=== PATIENT | male | born 1980 | race Caucasian/White ===

== ENCOUNTER 2019-05-26 11:03 | Outpatient (CLI) | payer OTHER, SELFPAY ==
--- NOTE | ~2019-05-26 | XR_ITS ---
EXAMINATION: XR foot RT min 3V DATE: 05/26/2019 11:25 INDICATION: Right-sided pain. TECHNIQUE: 4 views of right foot were obtained. COMPARISON: None. FINDINGS: Bone alignment is normal. No fracture. There is mild osteoarthritis of first metatarsophala ngeal joint. There is soft tissue swelling at fifth metatarsophalangeal joint. IMPRESSION: 1. Mild osteoarthritis of first metatarsophalangeal joint. Reviewed, dictated and finalized at location A. 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
== END 2019-05-26 11:04 | disposition home or self-care (01) ==
PROVIDERS: PCP Family Medicine; Visit Provider Family Medicine
DX: M79.671 Pain in right foot (principal)
CPT/HCPCS: 73630

== ENCOUNTER 2023-05-19 09:39 | Emergency (ER) | payer OTHER, SELFPAY ==
--- NOTE | ~2023-05-19 | XR_ITS ---
EXAMINATION: XR finger 4th LT min 2V DATE: 05/19/2023 10:02 INDICATION: Left hand fourth digit injury. TECHNIQUE: 3 views of left hand fourth digit were obtained. COMPARISON: None. FINDINGS: There is a comminuted fracture of tuft of fourth distal phalanx. Joint spaces are normal. T here is soft tissue swelling of the fourth digit. No radiopaque foreign body. IMPRESSION: 1. Comminuted fracture of tuft of fourth distal phalanx. Reviewed, dictated and finalized at location A. ONCOLOGY
[2023-05-19 09:39] VITALS: BP 144/86; PULSE 63; RESP 17; TEMP 36.9; O2SAT 99
--- NOTE | 2023-05-19 09:46 | ED.WOUNDLAC ---
HPI - Wound/Laceration General Chief Complaint: Wound/Laceration Stated Complaint: left ring finger crush injury Time Seen by Provider: 05/19/23 09:46 History of Present Illness HPI narrative: Patient is a 42 year old male with no PMH here with crush injury to left ring finger. Around 8 am today he was working with some machinery and his left ring finger got stuck between a piece of machinery and metal. He is right handed. Bleeding has controlled. No motor or sensory deficits in the hand with normal movement of the finger. No additional injuries. Unsure of last tetanus. Related Data Allergies Allergy/AdvReac Type Severity Reaction Status Date / Time Penicillins Allergy Anaphylaxis Verified 05/19/23 10:07 Review of Systems Review of Systems: All systems reviewed & are unremarkable except as noted in HPI and below Exam Narrative: GENERAL: Well-appearing, well-nourished, and in no acute distress. HEAD: Normocephalic, atraumatic. EYES: PERRLA and EOMI. ENT: Nares clear. Mucous membranes moist. NECK: Supple. CHEST: Clear to auscultation. No respiratory distress. HEART: Regular rate and rhythm. Normal peripheral pulses. ABDOMEN: Soft, nontender, nondistended. EXTREMITIES: Normal range of motion. No edema. 2 cm laceration to the palmar aspect extending to the tip of the left 4th digit, bleeding controlled. SKIN: Warm, dry, no rash. NEURO: No focal deficits. Alert and oriented x3. PSYCH: Normal mood and affect. Course Course Emergency Course: Chart review performed. Patient here for ring finger injury. Triage vitals normal. No prior visits in our system. Patient seen and evaluated, non toxic appearing. Isolated left ring finger laceration and crush injury. Will perform XR to evaluate for fracture, tetanus to be updated, will require laceration repair. Does not appear to extend into the nail bed on initial evaluation. XR reviewed by myself, small tuft fracture appreciated. Digital block performed with 2 ml of lidocaine without epi, wound explored. Does not appear to have obvious nail bed injury. Lateral aspect of the laceration does appear to run along the lateral boarder of nail. Offered nail removal with thorough nail bed exploration, patient refused. Advised he may have chance of a distorted nail growth pattern in that area, patient understands and continues to refuse nail removal. Triple antibiotic ointment and sterile dressing placed. The results of pertinent diagnostic studies and exam findings were discussed. The patient?s provisional diagnosis and plan of care were discussed with the patient and present family. The patient and/or present family expressed understanding of the diagnosis and plan. The nurse was instructed to provide written instructions and appropriate follow-up information. The patient understands their need and responsibility to obtain additional follow-up as instructed. The risks of medications administered and prescribed were discussed with the patient and family present. Vital Signs Vital signs: Vital Signs Temperature 98.4 F 05/19/23 09:39 Pulse Rate 63 05/19/23 09:39 Respiratory Rate 17 05/19/23 09:39 Blood Pressure 144/86 H 05/19/23 09:39 Pulse Oximetry 99 05/19/23 09:39 Oxygen Delivery Room Air 05/19/23 09:39 Temperature 98.4 F 05/19/23 09:39 Pulse Rate 63 05/19/23 09:39 Respiratory Rate 17 05/19/23 09:39 Blood Pressure 144/86 H 05/19/23 09:39 Pulse Oximetry 99 05/19/23 09:39 Oxygen Delivery Room Air 05/19/23 09:39 Procedures Laceration Laceration 1: Date: 05/19/23 Time: 10:47 Site: hand Side (If applicable): left Size (cm): 2 Description: linear Depth: simple, single layer Local Anesthetic: lidocaine 1% Amount of anesthesia used (mL): 2 Pre-repair: wound explored and irrigated ====== Skin Level ====== Skin layer closed with: prolene Size (cm): 5-0
[2023-05-19] MEDS: ACETAMINOPHEN 500 MG TABLET 1000 MG PO (10:07)
[2023-05-19] MEDS: TETANUS,DIPHTHERIA,AC PERTUSSIS ADULT 0.5 ML (ADACEL) IM (10:08)
[2023-05-19] MEDS: CLINDAMYCIN HCL 150 MG CAP 450 MG PO (10:13)
[2023-05-19 11:03] VITALS: BP 140/82; PULSE 67; RESP 17; TEMP 36.8; O2SAT 100
== END 2023-05-19 11:03 | disposition home or self-care (01) ==
PROVIDERS: Emergency Provider Student in an Organized Health Care Education/Training Program; PCP Internal Medicine
DX: S62.635A Displaced fracture of distal phalanx of left ring finger, initial encounter for closed fracture (principal); S61.215A Laceration without foreign body of left ring finger without damage to nail, initial encounter; Z23 Encounter for immunization; W31.9XXA Contact with unspecified machinery, initial encounter
CPT/HCPCS: 12001; 29130; 73140; 90471; 90715; 99284; A9270

== ENCOUNTER 2023-06-18 15:47 | Outpatient (CLI) | payer OTHER, SELFPAY ==
--- NOTE | ~2023-06-18 | XR_ITS ---
XR finger 4th LT min 2V 06/18/2023 17:00 Indication: Follow-up left fourth finger fracture Procedure: 2 views left fourth finger Comparison: 05/19/2023 Findings: Stable alignment of comminuted tuft fracture left fourth distal phalanx. Mild soft tissue s welling improved. No foreign bodies. Impression: 1: Stable alignment of comminuted tuft fracture left fourth distal phalanx. Reviewed, dictated and finalized at location A. Impression: 1: Stable alignment of comminuted tuft fracture left fourth distal phalanx.
== END 2023-06-18 15:48 | disposition home or self-care (01) ==
LOC: ANHIMG 15:49
PROVIDERS: PCP Internal Medicine; Visit Provider Physician Assistant Surgical
DX: S62.635A Displaced fracture of distal phalanx of left ring finger, initial encounter for closed fracture (principal)
CPT/HCPCS: 73140